=== PATIENT | female | born 1970 | race Two or more races ===

== ENCOUNTER → 2017-09-01 | Outpatient (CLI) | payer OTHER ==
[2017-09-01 13:14] LABS: ABSOLUTE BASOPHILS # (AUTO) 0.1 10^3/uL (0.0-0.2); ABSOLUTE EOSINOPHILS # (AUTO) 0.1 10^3/uL (0.0-0.6); ABSOLUTE LYMPHOCYTES (AUTO) 1.8 10^3/uL (0.5-4.7); ABSOLUTE MONOCYTES (AUTO) 0.4 10^3/uL (0.1-1.4); ABSOLUTE NEUT (AUTO) 4.9 10^3/uL (1.7-8.2); BASOPHILS % (AUTO) 0.9 % (0-2); HEMATOCRIT 48.9 % (36.0-47.0); HEMOGLOBIN 16.4 g/dL (12.0-15.5); LYMPHOCYTES % (AUTO) 25.1 % (13-45); MEAN CORPUSCULAR HEMOGLOBIN 29.1 pg (27.0-33.4); MEAN CORPUSCULAR HGB CONC 33.6 g/dL (32.0-36.0); MEAN CORPUSCULAR VOLUME 87 fl (80-97); PLATELET COUNT 147 10^3/uL (150-450); RED BLOOD COUNT 5.64 10^6/uL (3.72-5.28); RED CELL DISTRIBUTION WIDTH 13.5 % (11.5-14.0); TOTAL CELLS COUNTED % (AUTO) 100 %; WHITE BLOOD COUNT 7.2 10^3/uL (4.0-10.5)
[2017-09-01 13:36] LABS: ANION GAP 9 (5-19); BLOOD UREA NITROGEN 18 mg/dL (7-20); CALCIUM 11.7 mg/dL (8.4-10.2); CARBON DIOXIDE 26 mmol/L (22-30); CHLORIDE 101 mmol/L (98-107); CHOLESTEROL 214.67 mg/dL (0-200); GLUCOSE 318 mg/dL (75-110); POTASSIUM 5.3 mmol/L (3.6-5.0); SODIUM 135.9 mmol/L (137-145); TRIGLYCERIDES 118 mg/dL (<150)
[2017-09-01 13:49] LABS: DIRECT LDL 134 mg/dL (<100)
== END ==
LOC: CCC 12:23
DX: E10.9 Type 1 diabetes mellitus without complications (principal); E78.5 Hyperlipidemia, unspecified
CPT/HCPCS: 36415; 80048; 80061; 83036; 84443; 85025

== ENCOUNTER → 2017-09-08 | Outpatient (CLI) | payer OTHER ==
[2017-09-08 11:28] LABS: ALANINE AMINOTRANSFERASE 34 U/L (9-52); ALKALINE PHOSPHATASE 101 U/L (38-126); ANION GAP 9 (5-19); ASPARTATE AMINO TRANSFERASE 19 U/L (14-36); BILIRUBIN,DIRECT 0.3 mg/dL (0.0-0.4); BILIRUBIN,TOTAL 0.6 mg/dL (0.2-1.3); BLOOD UREA NITROGEN 15 mg/dL (7-20); CALCIUM 11.1 mg/dL (8.4-10.2); CARBON DIOXIDE 23 mmol/L (22-30); CHLORIDE 103 mmol/L (98-107); GLUCOSE 284 mg/dL (75-110); PHOSPHORUS 2.9 mg/dL (2.5-4.5); POTASSIUM 4.8 mmol/L (3.6-5.0); SODIUM 135.1 mmol/L (137-145); TOTAL PROTEIN 6.6 g/dL (6.3-8.2)
== END ==
LOC: CCC 10:30
DX: E10.8 Type 1 diabetes mellitus with unspecified complications (principal)
CPT/HCPCS: 36415; 80053; 82306; 83735; 83970; 84100

== ENCOUNTER → 2017-09-10 | Outpatient (CLI) | payer OTHER ==
--- NOTE | 2017-09-10 09:56 | RADIOLOGY REPORT (SQ) ---
EXAM DESCRIPTION: CT CHEST WITHOUT COMPLETED DATE/TIME: 09/10/2017 9:37 am REASON FOR STUDY: PULMONARY NODULE (R91.1) R91.1 SOLITARY PULMONARY NODULE COMPARISON: None. TECHNIQUE: CT scan performed of the chest without intravenous contrast. Images reviewed with lung, soft tissue and bone windows. Reconstructed coronal and sagittal MPR images reviewed. All images st ored on PACS. All CT scanners at this facility use dose modulation, iterative reconstruction, and/or weight based d osing when appropriate to reduce radiation dose to as low as reasonably achievable (ALARA). [facility]: Dose Right [facility]: CareDose [facility]: Dose Right [facility]: Teradose 4D [facility]: [employer] RADIATION DOSE: CT Rad equipment meets quality standard of care and radiation dose reduction techniq ues were employed. CTDIvol: 9.5 mGy. DLP: 369 mGy-cm. mGy. LIMITATIONS: No technical limitations. FINDINGS: LUNGS AND PLEURA: No masses, infiltrates, pneumothorax. No pleural effusions, calcificati ons. HILAR AND MEDIASTINAL STRUCTURES: No identified masses or abnormal nodes. No obvious aneurysm. HEART AND VASCULAR STRUCTURES: No aneurysm. No pericardial effusion. UPPER ABDOMEN: No significant findings. Limited exam. THYROID AND OTHER SOFT TISSUES: No masses. No adenopathy. BONES: No significant finding. HARDWARE: None in the chest. OTHER: No other significant findings. IMPRESSION: NO SIGNIFICANT FINDING ON NON-CONTRASTED CHEST CT. Pulmonary nodule not identified as c linically questioned. TECHNICAL DOCUMENTATION: JOB ID: [id number] Quality ID # [id number]: Final reports with documentation of one or more dose reduction techniques (e.g., Au tomated exposure control, adjustment of the mA and/or kV according to patient size, use of iterative reconstruction technique) 2010 [employer]- All Rights Reserved Reading location - IP/workstation name: [email or web address]
== END ==
LOC: RAD 09:03
DX: R91.1 Solitary pulmonary nodule (principal)
CPT/HCPCS: 71250

== ENCOUNTER 2017-10-14 11:11 | Emergency (ER) | payer OTHER ==
[2017-10-14 11:17] VITALS: BP 132/80
[2017-10-14] MEDS ORDERED: KETOROLAC TROMETHAMINE INJ/PF 30 MG/1 ML SDV IM ONE (12:35)
--- NOTE | 2017-10-14 12:42 | ER Document Report ---
ED Neck/Back Problem - General Chief Complaint: Back Pain Stated Complaint: BODY PAIN Time Seen by Provider: 10/14/17 12:04 Mode of Arrival: Ambulatory Information source: Patient TRAVEL OUTSIDE OF THE [place] IN LAST 30 DAYS: No - HPI Patient complains to provider of: Lower back Notes: Patient is here with complaints of pain all over her body as well as low back pain radiating down the left leg. Patient has a history of diabetes. She has a history of diabetic neuropathy. She states that for the last 7 months she has been getting what she describes as electric shooting pain throughout her entire body. States that she has seen her primary care doctor for this and they believe it may be related to some neuropathy. She is currently on gabapentin. She states that she has a history of having chronic low back pain. Over the last 24 hours the pain is gotten worse and is now radiating down the left leg. She denies any fall or trauma. She denies any fever. She is on a blood thinners. She denies abdominal pain. She denies any nausea, vomiting, diarrhea. No bowel or bladder dysfunction. No weakness in the leg. No chest pain or shortness of breath. Nothing makes her pain better or worse. - Related Data Allergies/Adverse Reactions: No Known Allergies Allergy (Verified 10/14/17 11:14) Past Medical History - Social History Smoking Status: Former Smoker Chew tobacco use (# tins/day): No Frequency of alcohol use: None Drug Abuse: None Family History: Reviewed & Not Pertinent Patient has suicidal ideation: No Patient has homicidal ideation: No - Past Medical History Cardiac Medical History: Reports: Hx Hypercholesterolemia, Hx Hypertension Pulmonary Medical History: Reports: Hx Asthma, Hx COPD Neurological Medical History: Reports: Hx Migraine Endocrine Medical History: Reports: Hx Diabetes Mellitus Type 2 Renal/ Medical History: Denies: Hx Peritoneal Dialysis Past Surgical History: Reports: Hx Hysterectomy, Hx Tubal Ligation - Immunizations Hx Diphtheria, Pertussis, Tetanus Vaccination: No Review of Systems - Review of Systems -: Yes All other systems reviewed and negative Physical Exam - Vital signs Vitals: Temp Pulse Resp BP Pulse Ox 98.0 F 116 H 20 132/80 H 99 10/14/17 11:16 10/14/17 11:16 10/14/17 11:16 10/14/17 11:16 10/14/17 11:16 - Notes Notes: GENERAL: alert, cooperative, nontoxic, no distress. HEAD: normocephalic, atraumatic EYES: conjunctiva pink without discharge, no external redness or swelling. EARS: no external swelling, no external redness NOSE: atraumatic, no external swelling MOUTH/THROAT: mucous membranes moist and pink, posterior pharynx without erythema, swelling, exudate. No trismus or drooling. NECK: soft, supple, full range of motion, no meningismus. CHEST: no distress, lungs clear and equal throughout. No wheezing, rales, rhonchi. CARDIAC: regular rate and rhythm, no murmur, normal capillary refill, normal pulses. No peripheral edema noted. ABDOMEN: soft, nontender, no pusatile mass. BACK: No CVA tenderness. Mild tenderness to the left low back and sciatic notch. Slightly limited range of motion of the low back. EXTREMITIES: full range of motion of all extremities. No redness, no swelling. NEURO: alert and oriented A&O x 3, no focal deficits, full range of motion of all extremities. 5 out of 5 flexion and extension of the lower extremities bilaterally. Patellar and Achilles deep tendon reflexes are +2 bilaterally. Normal sensation with no saddle anesthesia. Patient can dorsiflex the great toes bilaterally. PYSCH: appropriate mood, affect. Patient is cooperative. SKIN: pink, warm, dry, no rash. Course - Re-evaluation Re-evalutation: 10/14/17 12:38 Patient is nontoxic appearing with stable vitals. She is here with complaints of electric shooting pain all over her body which is been present for 7 months. She has a history of diabetic neuropathy and her doctor thinks that this is the source of this pain. Her biggest reason for her visit today was increasing left low back pain radiating down the left leg. Patient denies any fall or trauma. She has a history of chronic back pain. She has no sign or risk of cauda equina, epidural abscess/bleed, discitis, osteomyelitis, AAA. Exam findings are consistent with some lumbar radiculopathy versus sciatica. Due to the fact that she has diabetes, I will place her on NSAIDs as well as give her a muscle relaxer to take to see if this helps with her pain. She was instructed to follow-up with her primary care doctor at the next available appointment regarding her chronic pain. She should follow-up sooner for worsening pain, high fever, difficulty controlling her bowels or bladder, or for any further concerns. The patient is noted to have elevated blood pressure during today's emergency department visit. The patient was informed of this finding. The patient was instructed that this may be related to pre-hypertension and requires further evaluation with a primary care provider. The patient has no hypertensive symptoms at this time. The patient's emergency department workup and current diagnosis were explained to the patient and or family. Follow-up instructions were provided. Medications if prescribed were discussed. Instructions for when to return to the emergency department including specific worrisome symptoms were discussed with the patient and/or family. - Vital Signs Vital signs: Temp Pulse Resp BP Pulse Ox 98.0 F 116 H 20 132/80 H 99 10/14/17 11:16 10/14/17 11:16 10/14/17 11:16 10/14/17 11:16 10/14/17 11:16 Discharge - Discharge Clinical Impression: Sciatica Qualifiers: Laterality: left Qualified Code(s): M54.32 - Sciatica, left side Condition: Stable Disposition: HOME, SELF-CARE Instructions: Low Back Pain ([facility]), Sciatica ([facility]) Additional Instructions: Take medications as prescribed. Avoid heavy lifting. Try to stretch as much as possible. Follow-up with your primary care doctor at the next available appointment for reevaluation. Follow-up sooner for worsening pain, fever, difficulty controlling her bowels or bladder, abdominal pain, chest pain or shortness of breath, persistent vomiting, weakness in your lower extremities, or for any further concerns. Your blood pressure was elevated during today's visit. Have this rechecked with your doctor. Prescriptions: Naproxen [Naprosyn] 500 mg PO BID #20 tablet Tizanidine HCl [Zanaflex 4 Mg Tablet] 4 mg PO BID PRN #10 tablet PRN Reason: Forms: Elevated Blood Pressure, Smoking Cessation Education Referrals: FLIP JAMES MD [Primary Care Provider] - Follow up as needed
== END 2017-10-14 13:07 | disposition home or self-care (01) ==
LOC: ER 11:11
DX: M54.42 Lumbago with sciatica, left side (principal); E11.40 Type 2 diabetes mellitus with diabetic neuropathy, unspecified; I10 Essential (primary) hypertension; Z87.891 Personal history of nicotine dependence
CPT/HCPCS: 99283; 96372; J1885

== ENCOUNTER → 2017-10-22 | Outpatient (CLI) | payer OTHER ==
[2017-10-22 11:48] LABS: ANION GAP 7 (5-19); BLOOD UREA NITROGEN 16 mg/dL (7-20); CALCIUM 10.4 mg/dL (8.4-10.2); CARBON DIOXIDE 29 mmol/L (22-30); CHLORIDE 107 mmol/L (98-107); GLUCOSE 69 mg/dL (75-110); PHOSPHORUS 2.8 mg/dL (2.5-4.5); POTASSIUM 4.5 mmol/L (3.6-5.0); SODIUM 142.5 mmol/L (137-145)
== END ==
LOC: CCC 10:30
DX: E10.8 Type 1 diabetes mellitus with unspecified complications (principal); E83.52 Hypercalcemia
CPT/HCPCS: 36415; 80048; 82330; 84100

== ENCOUNTER → 2017-10-29 | Outpatient (CLI) | payer OTHER | LOC: OD 14:14 | DX: M19.90 Unspecified osteoarthritis, unspecified site (principal) | CPT/HCPCS: 36415; 86038; 86140; 86225; 86430 ==

== ENCOUNTER 2018-03-25 13:34 | Inpatient (IN) | payer OTHER ==
--- NOTE | 2018-03-25 14:00 | RADIOLOGY REPORT (SQ) ---
EXAM DESCRIPTION: CT HEAD WITHOUT COMPLETED DATE/TIME: 03/25/2018 1:48 pm REASON FOR STUDY: stroke S/S COMPARISON: None. TECHNIQUE: Axial images acquired through the brain without intravenous contrast. Images reviewed wi th bone, brain and subdural windows. Additional sagittal and coronal reconstructions were generated. Images stored on PACS. All CT scanners at this facility use dose modulation, iterative reconstruction, and/or weight based d osing when appropriate to reduce radiation dose to as low as reasonably achievable (ALARA). [facility]: Dose Right [facility]: CareDose [facility]: Dose Right [facility]: Teradose 4D [facility]: [employer] RADIATION DOSE: CT Rad equipment meets quality standard of care and radiation dose reduction techniq ues were employed. CTDIvol: 53.2 mGy. DLP: 964 mGy-cm. mGy. LIMITATIONS: None. FINDINGS: VENTRICLES: Normal size and contour. CEREBRUM: No masses. No hemorrhage. No midline shift. No evidence for acute infarction. Normal gra y/white matter differentiation. No areas of low density in the white matter. CEREBELLUM: No masses. No hemorrhage. No alteration of density. No evidence for acute infarction. EXTRAAXIAL SPACES: No fluid collections. No masses. ORBITS AND GLOBE: No intra- or extraconal masses. Normal contour of globe without masses. CALVARIUM: No fracture. PARANASAL SINUSES: No fluid or mucosal thickening. SOFT TISSUES: No mass or hematoma. OTHER: No other significant finding. IMPRESSION: NORMAL BRAIN CT WITHOUT CONTRAST. EVIDENCE OF ACUTE STROKE: NO. COMMENT: Pertinent findings on the imaging study reported as a CRITICAL RESULT to Dr Abreu at13:5 4 on 03/25/2018. Category of Critical Result: CT code stroke Quality ID # 436: Final reports with documentation of one or more dose reduction techniques (e.g., Au tomated exposure control, adjustment of the mA and/or kV according to patient size, use of iterative reconstruction technique) TECHNICAL DOCUMENTATION: JOB ID: [id number] [employer]- All Rights Reserved Reading location - IP/workstation name: [facility]
[2018-03-25 14:19] LABS: INTERNATIONAL RATION (INR) 0.97; PROTHROMBIN TIME 13.4 SEC (11.4-15.4)
[2018-03-25 14:20] LABS: PARTIAL THROMBOPLASTIN TIME 29.6 SEC (23.5-35.8)
[2018-03-25 14:24] LABS: ABSOLUTE EOSINOPHILS # (AUTO) 0.1 10^3/uL (0.0-0.6); ABSOLUTE LYMPHOCYTES (AUTO) 1.8 10^3/uL (0.5-4.7); ABSOLUTE MONOCYTES (AUTO) 0.3 10^3/uL (0.1-1.4); ABSOLUTE NEUT (AUTO) 4.8 10^3/uL (1.7-8.2); BASOPHILS % (AUTO) 0.6 % (0-2); EOSINOPHILS % (AUTO) 1.2 % (0-6); HEMATOCRIT 41.3 % (36.0-47.0); HEMOGLOBIN 14.3 g/dL (12.0-15.5); LYMPHOCYTES % (AUTO) 25.7 % (13-45); MEAN CORPUSCULAR HEMOGLOBIN 29.5 pg (27.0-33.4); MEAN CORPUSCULAR HGB CONC 34.5 g/dL (32.0-36.0); MEAN CORPUSCULAR VOLUME 85 fl (80-97); MONOCYTES % (AUTO) 4.7 % (3-13); PLATELET COUNT 153 10^3/uL (150-450); RED BLOOD COUNT 4.84 10^6/uL (3.72-5.28); RED CELL DISTRIBUTION WIDTH 13.2 % (11.5-14.0); SEGMENTED NEUTROPHILS % (AUTO) 67.8 % (42-78); TOTAL CELLS COUNTED % (AUTO) 100 %
--- NOTE | 2018-03-25 14:35 | RADIOLOGY REPORT (SQ) ---
EXAM DESCRIPTION: CHEST SINGLE VIEW COMPLETED DATE/TIME: 03/25/2018 2:05 pm REASON FOR STUDY: stroke S/S COMPARISON: CT chest 09/10/2017 EXAM PARAMETERS: NUMBER OF VIEWS: One view. TECHNIQUE: Single frontal radiographic view of the chest acquired. RADIATION DOSE: NA LIMITATIONS: None. FINDINGS: LUNGS AND PLEURA: No opacities, masses or pneumothorax. No pleural effusion. MEDIASTINUM AND HILAR STRUCTURES: No masses. Contour normal. HEART AND VASCULAR STRUCTURES: Heart normal in size. Normal vasculature. BONES: No acute findings. HARDWARE: None in the chest. OTHER: No other significant finding. IMPRESSION: NO ACUTE RADIOGRAPHIC FINDING IN THE CHEST. TECHNICAL DOCUMENTATION: JOB ID: [id number] [email or web address]- All Rights Reserved Reading location - IP/workstation name: [email or web address]
[2018-03-25 14:45] LABS: ALANINE AMINOTRANSFERASE 25 U/L (9-52); ALBUMIN 3.7 g/dL (3.5-5.0); ALKALINE PHOSPHATASE 95 U/L (38-126); ANION GAP 13 (5-19); ASPARTATE AMINO TRANSFERASE 16 U/L (14-36); BILIRUBIN,DIRECT 0.3 mg/dL (0.0-0.4); BILIRUBIN,TOTAL 0.6 mg/dL (0.2-1.3); BLOOD UREA NITROGEN 14 mg/dL (7-20); CALCIUM 10.5 mg/dL (8.4-10.2); CARBON DIOXIDE 19 mmol/L (22-30); CHLORIDE 104 mmol/L (98-107); CREATINE KINASE 49 U/L (30-135); GLUCOSE 263 mg/dL (75-110); POTASSIUM 4.3 mmol/L (3.6-5.0); SODIUM 135.5 mmol/L (137-145); TOTAL PROTEIN 6.4 g/dL (6.3-8.2)
[2018-03-25 14:57] LABS: CREATINE KINASE MB 1.15 ng/mL (<4.55)
[2018-03-25 14:58] LABS: TROPONIN I < 0.012 ng/mL
[2018-03-25] MEDS ORDERED: PROMETHAZINE HCL 25 MG TABLET PO ONE (15:11)
[2018-03-25] MEDS ORDERED: OXYCODONE-ACETAMINOPHEN 5-325 MG TABLET PO ONE (15:11)
--- NOTE | 2018-03-25 16:49 | RADIOLOGY REPORT (SQ) ---
EXAM DESCRIPTION: CTA CHEST COMPLETED DATE/TIME: 03/25/2018 4:21 pm REASON FOR STUDY: Left anterior chest pain, SOB COMPARISON: None. TECHNIQUE: CT scan of the chest performed using helical scanning technique with dynamic intravenous contrast injection. Images reviewed with lung, soft tissue and bone windows. Reconstructed coronal and sagittal MPR images reviewed. Additional 3 dimensional post-processing performed to develop Maximal Intensity Projection images (MN P). All images stored on PACS. All CT scanners at this facility use dose modulation, iterative reconstruction, and/or weight based d osing when appropriate to reduce radiation dose to as low as reasonably achievable (ALARA). [facility]: Dose Right [facility]: CareDose [facility]: Dose Right [facility]: Teradose 4D [facility]: [employer] CONTRAST TYPE AND DOSE: contrast/concentration: Isovue 350.00 mg/ml; Total Contrast Delivered: 75.0 ml; Total Saline Delivered: 90.0 ml Contrast bolus optimized for the pulmonary arteries. Not diagnostic for the aorta. RENAL FUNCTION: GFR > 60. RADIATION DOSE: CT Rad equipment meets quality standard of care and radiation dose reduction techniq ues were employed. CTDIvol: 16.5 - 18.8 mGy. DLP: 671 mGy-cm. . LIMITATIONS: None. FINDINGS: LUNGS AND PLEURA: No masses, infiltrates, or pneumothorax. No pleural effusions or pleura l calcifications. AORTA AND GREAT VESSELS: No aneurysm. Contrast bolus not optimized for the aorta. HEART: No pericardial effusion. No significant coronary artery calcifications. PULMONARY ARTERIES: No emboli visualized in the main pulmonary arteries or the segmental branches. HILAR AND MEDIASTINAL STRUCTURES: No identified masses or abnormal nodes. HARDWARE: None in the chest. UPPER ABDOMEN: No significant findings. Limited exam. THYROID AND OTHER SOFT TISSUES: No masses. No adenopathy. BONES: No acute or significant finding. 3D MIPS: Confirm above findings. OTHER: No other significant finding. IMPRESSION: NORMAL CTA OF THE CHEST. NO PULMONARY EMBOLI. COMMENT: Quality ID # [id number]: Final reports with documentation of one or more dose reduction techniques (e.g., Automated exposure control, adjustment of the mA and/or kV according to patient size, use of iterative reconstruction technique) TECHNICAL DOCUMENTATION: JOB ID: [id number] [employer]- All Rights Reserved Reading location - IP/workstation name: [facility]
[2018-03-25 17:51] LABS: CREATINE KINASE MB 0.95 ng/mL (<4.55)
[2018-03-25 17:56] LABS: TROPONIN I < 0.012 ng/mL
[2018-03-25] MEDS ORDERED: NITROGLYCERIN 5 MG (0.2 MG/HR) PATCH.TD24 TD ONE (18:03)
--- NOTE | 2018-03-25 18:17 | ER Document Report ---
ED Cardiac - General Chief Complaint: S/S of Possible Stroke Stated Complaint: CHEST PAIN Time Seen by Provider: 03/25/18 14:51 Notes: Patient is complaining of chest pains for the past couple of days. She says that the pain is of the left side of the front of the chest and goes into the left shoulder and into the left neck and left back. He goes and comes in no apparent causative factors or relief. Feels heavy and feels like "pressure". She also says she is having some difficulty breathing and shortness of breath. While she was in the doctor's office, getting her EKG done, she started noticing weakness of her left arm and left side and also feeling dizzy. Patient also says that she has been nauseated and having some abdominal cramps. Says that she has had some diarrhea earlier today. History of COPD secondary to cigarette smoking which the patient no longer does. Patient says that she was diagnosed with a "TIA" a couple of years ago. She is an insulin-dependent diabetic. Hypertensive. High cholesterol. Migraine headaches, and has headaches all the time. TRAVEL OUTSIDE OF THE [place] IN LAST 30 DAYS: No - Related Data Allergies/Adverse Reactions: No Known Allergies Allergy (Verified 10/14/17 11:14) Past Medical History - Social History Smoking Status: Former Smoker Chew tobacco use (# tins/day): No Frequency of alcohol use: Rare Drug Abuse: None Family History: Reviewed & Not Pertinent Patient has suicidal ideation: No Patient has homicidal ideation: No - Past Medical History Cardiac Medical History: Reports: Hx Hypercholesterolemia, Hx Hypertension Denies: Hx Coronary Artery Disease Pulmonary Medical History: Reports: Hx Asthma, Hx COPD Neurological Medical History: Reports: Hx Migraine Endocrine Medical History: Reports: Hx Diabetes Mellitus Type 1, Hx Diabetes Mellitus Type 2 Past Surgical History: Reports: Hx Hysterectomy, Hx Tubal Ligation - Immunizations Hx Diphtheria, Pertussis, Tetanus Vaccination: No Review of Systems - Review of Systems Notes: REVIEW OF SYSTEMS: CONSTITUTIONAL : Denies fever. EENT: Denies eye, ear, nose or mouth or throat pain or other symptoms. CARDIOVASCULAR: See HPI. RESPIRATORY: Denies cough, chest congestion, or shortness of breath. GASTROINTESTINAL: Denies abdominal pain or nausea, vomiting, or diarrhea. GENITOURINARY: Denies difficulty or painful urinating, urinary frequency, blood in urine. MUSCULOSKELETAL: Denies back or neck pain. Denies joint pain or swelling. SKIN: Denies rash or skin lesions. NEUROLOGICAL: Denies LOC or altered mental status. Has a headache. Denies sensory loss or motor deficits. Says she feels weak in her left arm. ALL OTHER SYSTEMS REVIEWED AND NEGATIVE. Physical Exam - Vital signs Vitals: Temp Pulse Resp BP Pulse Ox 98 F 93 20 137/91 H 100 03/25/18 14:15 03/25/18 14:15 03/25/18 14:15 03/25/18 14:15 03/25/18 14:15 Interpretation: Normal, Hypertensive - Mild Notes: PHYSICAL EXAMINATION: GENERAL: Well-appearing, anxious, mildly hyperventilating. Looks depressed. HEAD: Atraumatic, normocephalic. EYES: Pupils equal round and reactive to light, extraocular movements intact. ENT: oropharynx clear without exudates. Moist mucous membranes. NECK: Normal range of motion, supple. No carotid bruits heard. LUNGS: Breath sounds clear and equal bilaterally. Mild chest wall tenderness to palpate around the left breast.. HEART: Regular rate and rhythm without murmurs. ABDOMEN: Soft, nontender. No guarding or rebound. No masses. BACK: No tenderness throughout entire back. EXTREMITIES: Normal range of motion without pain. NEUROLOGICAL: Normal speech, normal gait. Normal sensory, motor, and reflex exams. Awake, alert, and oriented x3. Even though patient says she feels weak in her left arm, she has an equal hospital sales representative bilaterally. There is no facial asymmetry present. No apparent weakness or difference in strength in the lower extremities either. PSYCH: Sad, appears to be depressed. SKIN: Warm, dry, no rashes. Course - Re-evaluation Re-evalutation: 03/25/18 18:29 Patient's cardiac workup was essentially normal. She had 2 normal EKGs and 2 normal troponin levels by about 3 hours. Patient's neurological evaluation was normal, as well. Normal CT scan. Reversion to normal examination while in the ED. I am not sure if patient's symptoms are truly patient admitting representative of a pathologic process or if the patient is experiencing anxiety provoked symptoms. She does not really have any objective findings that are positive for any significant disease. However, because of her age and because of her multiple risk factors such as her insulin-dependent diabetes, former smoker, etc. I feel the patient to be observed at least overnight in house. Of contacted the hospitalist who agree and will admit the patient to telemetry for further evaluation. Patient had a 0.2 mg patch of nitroglycerin applied. Will be admitted to telemetry. - Vital Signs Vital signs: Temp Pulse Resp BP Pulse Ox 98 F 93 20 137/91 H 100 03/25/18 14:15 03/25/18 14:15 03/25/18 14:15 03/25/18 14:15 03/25/18 14:18 - Laboratory Result Diagrams: 03/25/18 13:58 03/25/18 13:58 Laboratory results interpreted by me: 03/25/18 03/25/18 13:58 14:02 Sodium 135.5 L Carbon Dioxide 19 L Glucose 263 H POC Glucose 248 H Calcium 10.5 H - Diagnostic Test Radiology reviewed: Image reviewed, Reports reviewed - CTA of the chest was normal. - EKG Interpretation by Ia EKG shows normal: Sinus rhythm Rate: Normal Rhythm: NSR Additional EKG results interpreted by me: 03/25/18 18:33 EKG is normal at 2 different times. Critical Care Note - Critical Care Note Total time excluding time spent on procedures (mins): 30 Discharge - Discharge Clinical Impression: Chest pain Condition: Stable Disposition: ADMITTED OBSERVATION Admitting Provider: Hospitalist Unit Admitted: Telemetry
[2018-03-25] MEDS ORDERED: ACETAMINOPHEN 325 MG TABLET PO ONE (18:19)
[2018-03-25] MEDS ORDERED: ONDANSETRON 4 MG TAB.RAPDIS PO PRN (19:14)
[2018-03-25] MEDS ORDERED: IPRATROPIUM/ALBUTEROL 0.5-2.5 MG/3 ML AMPUL NEB PRN (19:14)
[2018-03-25] MEDS ORDERED: ACETAMINOPHEN 325 MG TABLET PO PRN (19:14)
[2018-03-25] MEDS ORDERED: NORMAL SALINE 1000 ML 1,000 ML IV PRN (19:14)
--- NOTE | 2018-03-25 19:14 | PDOC H&P ---
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 Chest pain started about 2 days ago, pain is sharp, intermittent, no alleviating or exacerbating factor identified, radiating to the left upper extremity and between shoulders, intensity between 4/5. She states she has had this kind of chest pain about 1 year ago when she was in [place]. She had an echo on a stress test which were both negative. Denies any recent heavy lifting, fever, shortness of breath, nausea, vomiting, abdominal pain, back pain, constipation, diarrhea or any urinary symptoms. Past Medical History Cardiac Medical History: Reports: Hyperlipidema, Hypertension Denies: Coronary Artery Disease Pulmonary Medical History: Reports: Asthma, Chronic Obstructive Pulmonary Disease (COPD) Neurological Medical History: Reports: Migraine Endocrine Medical History: Reports: Diabetes Mellitus Type 1, Diabetes Mellitus Type 2 Past Surgical History Past Surgical History: Reports: Hysterectomy, Tubal Ligation Social History Smoking Status: Former Smoker Family History Family History: DM Parental Family History Reviewed: Yes Children Family History Reviewed: Yes Sibling(s) Family History Reviewed.: Yes Medication/Allergy Home Medications: Azithromycin 250 mg PO DAILY #4 tablet 04/24/17 Benzonatate [Tessalon Perles 100 mg Capsule] 100 mg PO Q8HP PRN #40 capsule 09/05 Prednisone [Deltasone 20 mg Tablet] 3 tab PO DAILY 5 Days tablet 04/24/17 Naproxen [Naprosyn] 500 mg PO BID #20 tablet 10/14/17 Tizanidine HCl [Zanaflex 4 Mg Tablet] 4 mg PO BID PRN #10 tablet 10/14/17 Allergies/Adverse Reactions: No Known Allergies Allergy (Verified 10/14/17 11:14) Review of Systems All systems: reviewed and no additional remarkable complaints except as stated - As per HPI Physical Exam Vital Signs: Temp Pulse Resp BP Pulse Ox 98 F 93 20 137/91 H 100 03/25/18 14:15 03/25/18 14:15 03/25/18 14:15 03/25/18 14:15 03/25/18 14:18 General appearance: PRESENT: no acute distress, well-developed, well-nourished Head exam: PRESENT: atraumatic, normocephalic Eye exam: PRESENT: conjunctiva pink, EOMI, PERRLA. ABSENT: scleral icterus Mouth exam: PRESENT: moist, tongue midline Neck exam: ABSENT: carotid bruit, JVD, lymphadenopathy, thyromegaly Respiratory exam: PRESENT: clear to auscultation danisha. ABSENT: rales, rhonchi, wheezes Cardiovascular exam: PRESENT: RRR, other - Tender to palpation over chest area. However patient states that she has history of fibromyalgia and she is tender everywhere.. ABSENT: diastolic murmur, rubs, systolic murmur GI/Abdominal exam: PRESENT: normal bowel sounds, soft. ABSENT: distended, guarding, mass, organolmegaly, rebound, tenderness Extremities exam: PRESENT: full ROM. ABSENT: calf tenderness, clubbing, pedal edema Musculoskeletal exam: PRESENT: tenderness - To palpation over chest and bilateral lower extremities. States that she has history of fibromyalgia and she is always tender., other Neurological exam: PRESENT: alert, awake, oriented to person, oriented to place , oriented to time, oriented to situation, CN II-XII grossly intact. ABSENT: motor sensory deficit Psychiatric exam: PRESENT: appropriate affect, normal mood. ABSENT: homicidal ideation, suicidal ideation Skin exam: PRESENT: dry, intact, warm. ABSENT: cyanosis, rash Results Impressions: Chest X-Ray 03/25/18 13:38 IMPRESSION: NO ACUTE RADIOGRAPHIC FINDING IN THE CHEST. Head CT 03/25/18 13:38 IMPRESSION: NORMAL BRAIN CT WITHOUT CONTRAST. EVIDENCE OF ACUTE STROKE: NO. Chest/Abdomen CTA 03/25/18 15:12 IMPRESSION: NORMAL CTA OF THE CHEST. NO PULMONARY EMBOLI. Assessment & Plan - Diagnosis (1) Chest pain Is this a current diagnosis for this admission?: Yes Plan: Atypical chest pain however patient is high risk due to history of diabetes, hypertension and history of tobacco abuse. Troponins negative x2. CTA chest negative. HEART Score of 2. Admit to telemetry, 2D echo. Will consult cardiology for possible stress. We will start on aspirin, statins, KARLI. (2) HTN (hypertension) Is this a current diagnosis for this admission?: Yes Plan: Restart KARLI inhibitor. Monitor vitals adjust meds as needed. (3) COPD (chronic obstructive pulmonary disease) Is this a current diagnosis for this admission?: Yes Plan: Currently not on exacerbation. Patient states she is not smoking anymore. Start on nebs. Chest x-ray and CTA chest negative for any acute abnormalities. (4) Dyslipidemia Is this a current diagnosis for this admission?: Yes Plan: Will restart on statins. Diet and lifestyle modification. (5) Fibromyalgia Is this a current diagnosis for this admission?: Yes Plan: Restart tizanidine, gabapentin. Supportive measures
[2018-03-25] MEDS ORDERED: INSULIN LISPRO 100 UNIT/ML 3 ML VIAL SUBCUT PRN (19:21)
[2018-03-25] MEDS ORDERED: DEXTROSE 40% GEL 15 GM TUBE PO PRN ×2 (19:21)
[2018-03-25] MEDS ORDERED: DEXTROSE 50%-WATER 25 GM/50 ML DISP.SYRIN IV PRN ×2 (19:21)
[2018-03-25] MEDS ORDERED: GLUCAGON,HUMAN RECOMB 1 MG INJ IM PRN (19:21)
--- NOTE | 2018-03-25 20:27 | EKG REPORT ---
SEVERITY:- NORMAL ECG - SINUS RHYTHM : Confirmed by: Caitlin Bowman 25-Mar-2018 20:26:59
--- NOTE | 2018-03-25 20:27 | EKG REPORT ---
SEVERITY:- NORMAL ECG - SINUS RHYTHM : Confirmed by: Caitlin Bowman 25-Mar-2018 20:26:41
[2018-03-25] MEDS: NAPROXEN 250 MG TABLET PO SCH (20:36)
[2018-03-25] MEDS ORDERED: INSULIN GLARGINE,HUM.REC.ANLOG 300 UNIT/3 ML INSULN.PEN SUBCUT SCH (22:00)
[2018-03-25] MEDS ORDERED: ATORVASTATIN CALCIUM 40 MG TABLET PO SCH (22:00)
[2018-03-25] MEDS: GABAPENTIN 300 MG CAPSULE PO SCH (22:30)
[2018-03-25] MEDS: FAMOTIDINE 20 MG TABLET PO SCH (22:30)
[2018-03-25] MEDS: HEPARIN SOD (PORCINE) 5,000 UNIT/ML 1 ML SYRINGE SUBCUT SCH (22:30)
[2018-03-26 04:47] LABS: ABSOLUTE BASOPHILS # (AUTO) 0.1 10^3/uL (0.0-0.2); ABSOLUTE EOSINOPHILS # (AUTO) 0.2 10^3/uL (0.0-0.6); ABSOLUTE LYMPHOCYTES (AUTO) 2.1 10^3/uL (0.5-4.7); ABSOLUTE MONOCYTES (AUTO) 0.4 10^3/uL (0.1-1.4); ABSOLUTE NEUT (AUTO) 3.5 10^3/uL (1.7-8.2); BASOPHILS % (AUTO) 0.8 % (0-2); EOSINOPHILS % (AUTO) 2.6 % (0-6); HEMATOCRIT 38.7 % (36.0-47.0); HEMOGLOBIN 13.1 g/dL (12.0-15.5); LYMPHOCYTES % (AUTO) 33.9 % (13-45); MEAN CORPUSCULAR HEMOGLOBIN 29.2 pg (27.0-33.4); MEAN CORPUSCULAR HGB CONC 33.7 g/dL (32.0-36.0); MEAN CORPUSCULAR VOLUME 87 fl (80-97); PLATELET COUNT 123 10^3/uL (150-450); RED BLOOD COUNT 4.47 10^6/uL (3.72-5.28); RED CELL DISTRIBUTION WIDTH 13.5 % (11.5-14.0); SEGMENTED NEUTROPHILS % (AUTO) 56.7 % (42-78); TOTAL CELLS COUNTED % (AUTO) 100 %; WHITE BLOOD COUNT 6.2 10^3/uL (4.0-10.5)
[2018-03-26] MEDS: HEPARIN SOD (PORCINE) 5,000 UNIT/ML 1 ML SYRINGE SUBCUT SCH ×2 (05:05→14:04)
[2018-03-26 05:10] LABS: ALANINE AMINOTRANSFERASE 22 U/L (9-52); ALKALINE PHOSPHATASE 91 U/L (38-126); ANION GAP 8 (5-19); ASPARTATE AMINO TRANSFERASE 12 U/L (14-36); BILIRUBIN,DIRECT 0.3 mg/dL (0.0-0.4); BILIRUBIN,TOTAL 0.5 mg/dL (0.2-1.3); BLOOD UREA NITROGEN 14 mg/dL (7-20); CALCIUM 10.2 mg/dL (8.4-10.2); CARBON DIOXIDE 22 mmol/L (22-30); CHLORIDE 106 mmol/L (98-107); CHOLESTEROL 149.41 mg/dL (0-200); GLUCOSE 208 mg/dL (75-110); POTASSIUM 4.1 mmol/L (3.6-5.0); SODIUM 136.4 mmol/L (137-145); TOTAL PROTEIN 5.6 g/dL (6.3-8.2); TRIGLYCERIDES 114 mg/dL (<150)
[2018-03-26 05:21] LABS: DIRECT LDL 92 mg/dL (<100)
[2018-03-26 05:28] LABS: FREE T3 2.79 pg/mL (2.77-5.27); FREE T4 (FREE THYROXINE) 0.94 ng/dL (0.78-2.19)
[2018-03-26 05:41] LABS: THYROID STIMULATING HORMONE 2.3 uIU/mL (0.47-4.68)
--- NOTE | 2018-03-26 09:39 | XCELERA REPORT ---
[address] [address] Transthoracic Echocardiogram Report Name: HERB RODRÍGUEZ Age: 47 yrs Gender: Female : 1970 Patient Status: Inpatient Patient Location: [place] [address]^A Study Date: 03/25/2018 08:46 PM Height: 69 in Weight: 190 lb BSA: 2.0 m2 Procedure: A complete two-dimensional transthoracic echocardiogram was performed (2D, M-mode, spectral and color flow Doppler). The study was technically difficult with many images being suboptimal in quality. Reason For Study: Chest Pain Ordering Physician: LUIS MIGUEL MENDIETA Performed By: Sherry Ponce Interpretation Summary The left ventricular ejection fraction is normal. There is borderline concentric left ventricular hypertrophy. Doppler measurements suggest pseudonormalized left ventricular relaxation, which is associated with grade II/IV or mild to moderate diastolic dysfunction The left ventricle is grossly normal size. Wall motion cannot be accurately commented on, but no definite regional wall motion abnormalities noted. The right atrium is normal. The left atrial size is normal. There is a trace amount of mitral regurgitation There is no mitral valve stenosis. No aortic regurgitation is present. There is no aortic valve stenosis There is a trace or physiologic amount of tricuspid regurgitation Tricuspid regurgitation jet envelope not well defined to measure RV systolic pressure accurately. There is no pericardial effusion. MMode/2D Measurements & Calculations RVDd: 2.1 cm LVIDd: 4.6 cm FS: 33.1 % Ao root diam: 2.7 cm IVSd: 1.1 cm LVIDs: 3.1 cm EDV(Teich): 99.8 ml Ao root area: 5.5 cm2 LVPWd: 0.96 cm ESV(Teich): 38.3 ml LA dimension: 3.3 cm EF(Teich): 61.7 % Doppler Measurements & Calculations MV E max simeon: MV P1/2t max simeon: Ao V2 max: LV V1 max P.6 cm/sec 81.4 cm/sec 121.5 cm/sec 3.0 mmHg MV A max simeon: MV P1/2t: 55.5 msec Ao max P.9 mmHg LV V1 max: 87.4 cm/sec MVA(P1/2t): 4.0 cm2 86.9 cm/sec MV E/A: 0.77 MV dec slope: 430.0 cm/sec2 MV dec time: 0.23 sec PA V2 max: TR max simeon: MV P1/2t-pr_phl: 71.5 cm/sec 138.0 cm/sec 55.5 msec PA max PG: TR max P.6 mmHg 2.1 mmHg Left Ventricle The left ventricle is grossly normal size. There is borderline concentric left ventricular hypertrophy. The left ventricular ejection fraction is normal. Doppler measurements suggest pseudonormalized left ventricular relaxation, which is associated with grade II/IV or mild to moderate diastolic dysfunction. Wall motion cannot be accurately commented on, but no definite regional wall motion abnormalities noted. Right Ventricle The right ventricle is grossly normal size. Right ventricular function cannot be assessed due to poor image quality. Atria The right atrium is normal. The left atrial size is normal. Interarterial septum not well visualized and not well dopplered. Cannot comment on ASD/PFO presence. Mitral Valve The mitral valve leaflets are sclerotic, but show no functional abnormalities. There is no mitral valve stenosis. There is a trace amount of mitral regurgitation. Aortic Valve The aortic valve is not well visualized secondary to technical limitations. There is no aortic valve stenosis. No aortic regurgitation is present. Tricuspid Valve The tricuspid valve is not well visualized secondary to technical limitations. There is no tricuspid stenosis. There is a trace or physiologic amount of tricuspid regurgitation. Tricuspid regurgitation jet envelope not well defined to measure RV systolic pressure accurately. Pulmonic Valve The pulmonic valve is not well visualized. Great Vessels The aortic root is not well visualized. The inferior vena cava was not well visualized. Effusions There is no pericardial effusion. : LUIS MIGUEL MENDIETA > Caitlin Bowman
[2018-03-26] MEDS: GABAPENTIN 300 MG CAPSULE PO SCH (09:54)
[2018-03-26] MEDS: FAMOTIDINE 20 MG TABLET PO SCH (09:54)
[2018-03-26] MEDS: INSULIN LISPRO 100 UNIT/ML 3 ML VIAL SUBCUT SCH ×2 (09:55→13:58)
[2018-03-26] MEDS ORDERED: DOCUSATE SODIUM 100 MG CAPSULE PO SCH (10:00)
[2018-03-26] MEDS ORDERED: ASPIRIN 81 MG TABLET, CHEWABLE PO SCH (10:00)
[2018-03-26] MEDS ORDERED: LISINOPRIL 10 MG TABLET PO SCH (10:00)
[2018-03-26] MEDS ORDERED: DULOXETINE HCL 30 MG CAPSULE.DR PO SCH (10:00)
--- NOTE | 2018-03-26 12:09 | PDOC DISCHARGE SUMMARY ---
General - Admit/Disc Date/PCP Admission Date/Primary Care Provider: 03/25/18 18:38 Discharge Date: 03/26/18 - Discharge Diagnosis (1) Chest pain Is this a current diagnosis for this admission?: Yes (2) HTN (hypertension) Is this a current diagnosis for this admission?: Yes (3) COPD (chronic obstructive pulmonary disease) Is this a current diagnosis for this admission?: Yes (4) Dyslipidemia Is this a current diagnosis for this admission?: Yes (5) Fibromyalgia Is this a current diagnosis for this admission?: Yes - Additional Information Discharge Diet: As Tolerated Discharge Activity: Activity As Tolerated Prescriptions: Aspirin [Aspirin 81 mg Chewable Tablet] 81 mg PO DAILY 30 Days #30 tab.chew Atorvastatin Calcium [Lipitor 40 mg Tablet] 40 mg PO QHS 30 Days #30 tablet Duloxetine HCl [Cymbalta 30 mg Capsule.] 30 mg PO DAILY 30 Days #30 capsule. Home Medications: Albuterol Sulfate [Proventil Hfa] 2 puff IH Q6HP PRN 03/25/18 Gabapentin [Neurontin 300 mg Capsule] 300 mg PO Q8 03/25/18 Lisinopril [Prinivil 10 mg Tablet] 10 mg PO DAILY 03/25/18 Meloxicam [Mobic] 7.5 mg PO DAILY 03/25/18 Metformin HCl [Glucophage] 1,000 mg PO BID 03/25/18 Aspirin [Aspirin 81 mg Chewable Tablet] 81 mg PO DAILY 30 Days #30 tab.chew 11/06 Atorvastatin Calcium [Lipitor 40 mg Tablet] 40 mg PO QHS 30 Days #30 tablet 11/06 Duloxetine HCl [Cymbalta 30 mg Capsule.] 30 mg PO DAILY 30 Days #30 capsule. 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 Chest pain started about 2 days ago, pain is sharp, intermittent, no alleviating or exacerbating factor identified, radiating to the left upper extremity and between shoulders, intensity between 4/5. She states she has had this kind of chest pain about 1 year ago when she was in [place]. She had an echo on a stress test which were both negative. Denies any recent heavy lifting, fever, shortness of breath, nausea, vomiting, abdominal pain, back pain, constipation, diarrhea or any urinary symptoms. Hospital Course Hospital Course: 1) Chest pain Atypical chest pain however patient is high risk due to history of diabetes, hypertension and history of tobacco abuse. EKG negative for any acute changes. Troponins negative x2. CTA chest negative. HEART Score of 2. Normal ejection fraction as per 2D echo. Outpatient follow-up with Dr. Arriaga as per his recommendation. Continue aspirin, statins, KARLI. (2) HTN (hypertension) Normotensive euvolemic. Continue lisinopril. (3) COPD (chronic obstructive pulmonary disease) Currently not on exacerbation. Patient states she is not smoking anymore. Start on nebs. Chest x-ray and CTA chest negative for any acute abnormalities. (4) Dyslipidemia Started on statins. Follow-up with PCP in 1-2 weeks for life and function test. (5) Fibromyalgia Continue tizanidine and gabapentin. Started on Cymbalta 30 mg. Follow-up with PCP in 1-2 weeks for liver function test. Monitor blood pressure. Physical Exam Vital Signs: Temp Pulse Resp BP Pulse Ox 97.8 F 70 16 130/68 H 97 03/26/18 08:00 03/26/18 08:00 03/26/18 08:00 03/26/18 08:00 03/26/18 08:00 Intake & Output 03/25/18 03/26/18 03/27/18 06:59 06:59 06:59 Weight 90 kg General appearance: PRESENT: no acute distress, well-developed, well-nourished Head exam: PRESENT: atraumatic, normocephalic Eye exam: PRESENT: conjunctiva pink, EOMI, PERRLA. ABSENT: scleral icterus Ear exam: PRESENT: normal external ear exam Mouth exam: PRESENT: moist, tongue midline Neck exam: ABSENT: carotid bruit, JVD, lymphadenopathy, thyromegaly Respiratory exam: PRESENT: clear to auscultation danisha. ABSENT: rales, rhonchi, wheezes Cardiovascular exam: PRESENT: RRR. ABSENT: diastolic murmur, rubs, systolic murmur Pulses: PRESENT: normal dorsalis pedis pul Vascular exam: PRESENT: normal capillary refill GI/Abdominal exam: PRESENT: normal bowel sounds, soft. ABSENT: distended, guarding, mass, organolmegaly, rebound, tenderness Rectal exam: PRESENT: deferred Extremities exam: PRESENT: full ROM. ABSENT: calf tenderness, clubbing, pedal edema Musculoskeletal exam: PRESENT: tenderness, other - Tender to palpation over chest back and extremities. Note patient has fibromyalgia and she says she is always tender. Neurological exam: PRESENT: alert, awake, oriented to person, oriented to place , oriented to time, oriented to situation, CN II-XII grossly intact. ABSENT: motor sensory deficit Psychiatric exam: PRESENT: appropriate affect, normal mood. ABSENT: homicidal ideation, suicidal ideation Skin exam: PRESENT: dry, intact, warm. ABSENT: cyanosis, rash Results Laboratory Results: 03/26/18 04:00 03/26/18 04:00 03/26/18 03/26/18 03/26/18 04:00 04:00 04:00 WBC 6.2 RBC 4.47 Hgb 13.1 Hct 38.7 MCV 87 MCH 29.2 MCHC 33.7 RDW 13.5 Plt Count 123 L Seg Neutrophils % 56.7 Lymphocytes % 33.9 Monocytes % 6.0 Eosinophils % 2.6 Basophils % 0.8 Absolute Neutrophils 3.5 Absolute Lymphocytes 2.1 Absolute Monocytes 0.4 Absolute Eosinophils 0.2 Absolute Basophils 0.1 Sodium 136.4 L Potassium 4.1 Chloride 106 Carbon Dioxide 22 Anion Gap 8 BUN 14 Creatinine 0.60 Est GFR ( Amer) > 60 Est GFR (Non-Af Amer) > 60 Glucose 208 H Calcium 10.2 Total Bilirubin 0.5 AST 12 L ALT 22 Alkaline Phosphatase 91 Total Protein 5.6 L Albumin 3.0 L Triglycerides 114 Cholesterol 149.41 LDL Cholesterol Direct 92 VLDL Cholesterol 23.0 HDL Cholesterol 47 TSH 2.30 Free T4 0.94 Free T3 pg/mL 2.79 Impressions: Chest X-Ray 03/25/18 13:38 IMPRESSION: NO ACUTE RADIOGRAPHIC FINDING IN THE CHEST. Head CT 03/25/18 13:38 IMPRESSION: NORMAL BRAIN CT WITHOUT CONTRAST. EVIDENCE OF ACUTE STROKE: NO. Chest/Abdomen CTA 03/25/18 15:12 IMPRESSION: NORMAL CTA OF THE CHEST. NO PULMONARY EMBOLI. Qualifiers - * PATIENT BEING DISCHARGED WITH ANY OF THE FOLLOWING DIAGNOSIS: No VTE patient discharged on overlapping Therapy?: Yes
[2018-03-26 12:33] VITALS: BP 130/78
[2018-03-26] MEDS: NAPROXEN 250 MG TABLET PO SCH (13:57)
[2018-03-26] MEDS: TIZANIDINE HCL 4 MG TABLET PO SCH ×2 (13:58→13:59)
== END 2018-03-26 15:00 | disposition home or self-care (01) | DRG 313 ==
LOC: ER 13:34 → EH 18:38 → OBSVTOIN 18:38 → 5 22:15
PROVIDERS: ADMIT Emergency Medicine; ATTEND Emergency Medicine
DX: R07.89 Other chest pain (principal); M79.7 Fibromyalgia; E11.9 Type 2 diabetes mellitus without complications; E78.5 Hyperlipidemia, unspecified; J44.9 Chronic obstructive pulmonary disease, unspecified; I10 Essential (primary) hypertension; Z87.891 Personal history of nicotine dependence; Z86.73 Personal history of transient ischemic attack (TIA), and cerebral infarction without residual deficits; Z98.51 Tubal ligation status; Z83.3 Family history of diabetes mellitus; Z79.51 Long term (current) use of inhaled steroids; Z79.82 Long term (current) use of aspirin; Z23 Encounter for immunization
CPT/HCPCS: 36415; 70450; 71045; 71275; 80053; 80061; 82550; 82553; 82962; 83036; 84439; 84443; 84481; 84484; 85025; 85610; 85730; 90471; 90686; 93005; 93010; 93306; 96372; 99291; G0008; J1644; J1815; J3490

== ENCOUNTER → 2018-04-28 | Outpatient (CLI) | payer OTHER ==
--- NOTE | 2018-05-03 14:07 | WOMENS IMAGING REPORT ---
EXAM DESCRIPTION: ALIDA FRANCIS BILATERAL SCREEN COMPLETED DATE/TIME: 04/28/2018 8:43 am REASON FOR STUDY: BILATERAL SCREENOING MAMMO/Z12.31 Z12.31 ENCNTR SCREEN MAMMOGRAM FOR MALIGNANT NE OPLASM OF JACKY COMPARISON: None available TECHNIQUE: Standard craniocaudal and mediolateral oblique views of each breast recorded using [facility] acquisition. LIMITATIONS: None. FINDINGS: No masses, calcifications or architectural distortion. No areas of suspicion. Read with the assistance of CAD. .[facility] - R2 Cenova Version 1.3 .[facility] Imaging - R2 Cenova Version 1.3 .[facility] - R2 Cenova Version 2.4 .[facility] [place] Cenova Version 2.4 .[facility] - R2 [employer] Version 9.2 IMPRESSION: NORMAL MAMMOGRAM. BIRADS 1. BREAST DENSITY: b. There are scattered areas of fibroglandular density. BIRAD: 1 NEGATIVE RECOMMENDATION: ROUTINE SCREENING Please continue yearly bilateral screening mammography/tomosynthesis in April 2019 COMMENT: The patient has been notified of the results by letter per SA requirements. Additional no tification policies are in place for contacting patient with suspicious or incomplete findings. Quality ID #[id number]: The [employer] recommends an annual screening mammogram for women aged 40 years or over. This facility utilizes a reminder system to ensure that all patients receive reminder letters, and/or direct phone calls for appointments. This includes reminders for routine scr eening mammograms, diagnostic mammograms, or other Breast Imaging Interventions when appropriate. Th is patient will be placed in the appropriate reminder system. The [employer] (A[employer]) has developed recommendations for screening MRI of the breast s in certain patient populations, to be used in conjunction with mammography. Breast MRI surveillanc e may be appropriate for women with more than 20% lifetime risk of developing breast cancer as deter mined by genetic testing, significant family history of the disease, or history of mantle radiation f or Hodgkins Disease. ACR Practice Guidelines 2008. TECHNICAL DOCUMENTATION: FINDING NUMBER: (1) ASSESSMENT: (1) JOB ID: [id number] [employer]- All Rights Reserved Reading location - IP/workstation name: ON LICENSE OF [facility]
== END ==
LOC: WI 08:10
DX: Z12.31 Encounter for screening mammogram for malignant neoplasm of breast (principal)
CPT/HCPCS: 77067